=== PATIENT | male | born 1970 | race Caucasian/White ===

== ENCOUNTER 2017-10-28 16:01 | Inpatient (IN) | payer MEDICARE, MEDICAID ==
[~2017-10-28] VITALS: Ht 193 cm; Wt 84.0 kg
[2017-10-28] MEDS ORDERED: ondansetron/PF 4mg/2ml inj IV ONE (17:15)
[2017-10-28] MEDS ORDERED: piperacillin/tazo 3.375gm/50ml 50 ML IV ONE (17:15)
[2017-10-28] MEDS ORDERED: normal saline 1000ML IV soln IV ONE (17:15)
[2017-10-28 17:24] LABS: BASOPHILS % (AUTO) 0 % (0-1); EOSINOPHILS # (AUTO) 0.4 X10'3 (0-0.9); EOSINOPHILS % (AUTO) 1.4 % (0-6); HEMOGLOBIN 16.1 g/dl (14.0-17.9); LYMPHOCYTES # (AUTO) 1.8 X10'3 (1.1-4.8); LYMPHOCYTES % (AUTO) 7.2 % (21-51); MEAN CORPUSCULAR HEMOGLOBIN 31.8 PG (27.0-31.0); MEAN CORPUSCULAR HGB CONC 32.9 % (33.0-36.5); MEAN CORPUSCULAR VOLUME 96.8 FL (78-98); MEAN PLATELET VOLUME 7.8 FL (7.4-10.4); MONOCYTES # (AUTO) 2.1 X10'3 (0-0.9); MONOCYTES % (AUTO) 8.6 % (2-12); NEUTROPHILS # (AUTO) 20.6 X10'3 (1.8-7.7); NEUTROPHILS % (AUTO) 82.8 % (42-75); PLATELET COUNT 305 X10'3 (140-440); RED BLOOD COUNT 5.07 X10'6 (4.70-6.10); RED CELL DISTRIBUTION WIDTH 15.4 % (11.5-14.5); WHITE BLOOD COUNT 24.9 X10'3 (4.5-11.0)
[2017-10-28 17:35] LABS: PARTIAL THROMBOPLASTIN TIME 28 SECONDS (22-32)
[2017-10-28 17:40] LABS: ALANINE AMINOTRANSFERASE 325 U/L (12-78); ALBUMIN 2.9 G/DL (3.4-5.0); ALBUMIN/GLOBULIN RATIO 0.7 (1.1-1.5); ALKALINE PHOSPHATASE 117 IU/L (46-116); ANION GAP 3 (8-16); ASPARTATE AMINO TRANSFERASE 99 U/L (10-37); BLOOD UREA NITROGEN 16 MG/DL (7-18); BUN/CREATININE RATIO 15.2 (5.4-32.0); CALCIUM 9.1 MG/DL (8.5-10.1); CHLORIDE 102 MMOL/L (99-107); CREATININE 1.05 MG/DL (0.60-1.10); GLUCOSE 140 MG/DL (70-104); POTASSIUM 4.5 MMOL/L (3.5-5.1); SODIUM 137 MMOL/L (135-145); TOTAL CARBON DIOXIDE 31.8 MMOL/L (24-32); TOTAL PROTEIN 6.9 G/DL (6.4-8.2); eGFR 76 ML/MIN
[2017-10-28] MEDS ORDERED: iohexol 300mg/ml 100ml inj. ONE (17:59)
[2017-10-28] MEDS ORDERED: vancomycin/NS 1 GM ADD-VANTAGE 250 ML IV ONE (18:00)
[2017-10-28] MEDS ORDERED: cefazolin/dext.iso 2gm/50ml 50 ML IV ONE (18:11)
[2017-10-28] MEDS ORDERED: ceFAZolin inj. 2,000 MG in dextrose 5%-water 100 ML IV ONE (18:34)
[2017-10-28 20:14] LABS: CLARITY,URINE Clear (Clear); COLOR,URINE Yellow (Yellow); GLUCOSE, URINE Negative (Neg); KETONES,URINE Negative (Neg); LEUKOCYTE ESTERASE ,URINE Negative (Neg); NITRITES, URINE Negative (Neg); OCCULT BLOOD,URINE Negative (Neg); PROTEIN,URINE Negative (Neg)
[2017-10-28 20:21] LABS: UA COLLECTION TYPE CLN CATCH MIDSTREAM
[2017-10-28] MEDS ORDERED: LORazepam 2 mg/ml vial IV ONE (23:30)
[2017-10-28] MEDS ORDERED: proCHLORperazine 10 MG/2 ml inj IV ONE (23:30)
[2017-10-29] VITALS (19 sets, daily range): BP systolic 117–167; BP diastolic 64–109
[2017-10-29] MEDS ORDERED: mag hydrox/Alum hydrox/simeth 30ml oral suspension PO PRN (00:10)
[2017-10-29] MEDS ORDERED: magnesium hydroxide 30ml (MOM) UD suspension PO PRN (00:10)
[2017-10-29] MEDS ORDERED: ondansetron/PF 4mg/2ml inj IV PRN ×2 (00:10→12:15)
[2017-10-29] MEDS: normal saline 1000ml 1,000 ML IV SCH ×3 (01:40→20:25)
[2017-10-29] MEDS ORDERED: morphine 5 MG/ML injection IV PRN ×4 (06:06→06:56)
[2017-10-29 06:11] LABS: BASOPHILS # (AUTO) 0.1 X10'3 (0-0.2); BASOPHILS % (AUTO) 0.4 % (0-1); EOSINOPHILS # (AUTO) 0.3 X10'3 (0-0.9); EOSINOPHILS % (AUTO) 1.2 % (0-6); HEMATOCRIT 46.3 % (42.0-52.0); HEMOGLOBIN 15.7 g/dl (14.0-17.9); LYMPHOCYTES % (AUTO) 7.8 % (21-51); MEAN CORPUSCULAR HEMOGLOBIN 32.3 PG (27.0-31.0); MEAN CORPUSCULAR HGB CONC 33.8 % (33.0-36.5); MEAN CORPUSCULAR VOLUME 95.5 FL (78-98); MEAN PLATELET VOLUME 8.2 FL (7.4-10.4); MONOCYTES # (AUTO) 2.9 X10'3 (0-0.9); NEUTROPHILS # (AUTO) 20.9 X10'3 (1.8-7.7); NEUTROPHILS % (AUTO) 79.6 % (42-75); PLATELET COUNT 278 X10'3 (140-440); RED BLOOD COUNT 4.85 X10'6 (4.70-6.10); RED CELL DISTRIBUTION WIDTH 15.3 % (11.5-14.5)
[2017-10-29 06:41] LABS: WHITE BLOOD COUNT 26.2 X10'3 (4.5-11.0)
[2017-10-29 06:47] LABS: ALANINE AMINOTRANSFERASE 233 U/L (12-78); ALBUMIN 2.2 G/DL (3.4-5.0); ALBUMIN/GLOBULIN RATIO 0.7 (1.1-1.5); ALKALINE PHOSPHATASE 119 IU/L (46-116); ANION GAP 7 (8-16); ASPARTATE AMINO TRANSFERASE 73 U/L (10-37); BILIRUBIN,TOTAL 1.3 MG/DL (0.1-1.0); BLOOD UREA NITROGEN 8 MG/DL (7-18); BUN/CREATININE RATIO 10.3 (5.4-32.0); CALCIUM 8.3 MG/DL (8.5-10.1); CHLORIDE 104 MMOL/L (99-107); CREATININE 0.78 MG/DL (0.60-1.10); GLUCOSE 82 MG/DL (70-104); POTASSIUM 3.8 MMOL/L (3.5-5.1); SODIUM 137 MMOL/L (135-145); TOTAL CARBON DIOXIDE 25.9 MMOL/L (24-32); TOTAL PROTEIN 5.5 G/DL (6.4-8.2); eGFR > 90 ML/MIN
[2017-10-29 08:17] LABS: PLATELET ESTIMATE NORMAL; TOTAL CELLS COUNTED 100
[2017-10-29] MEDS ORDERED: NO HOME MEDS (08:53)
[2017-10-29] MEDS: piperacillin/tazo 3.375gm/50ml 50 ML IV SCH ×2 (09:35→16:30)
[2017-10-29] MEDS: vancomycin inj 1,250 MG in normal saline 250ml IV soln 250 ML IV SCH ×2 (09:35→17:13)
[2017-10-29] MEDS ORDERED: BUPIVAcaine/PF 2.5 mg/ml (0.25%) 30ml vial ONE (11:50)
[2017-10-29] MEDS ORDERED: vancomycin 1,000mg inj ONE (11:50)
[2017-10-29] MEDS ORDERED: ringers solution, lacted 1,000 ML IV SCH (12:12)
[2017-10-29] MEDS ORDERED: meperidine/PF 25mg/ml syringe IV PRN ×2 (12:15)
[2017-10-29] MEDS ORDERED: proCHLORperazine 10 MG/2 ml inj IV PRN (12:15)
[2017-10-29] MEDS ORDERED: sevoflurane 250ml liquid IH ONE (12:15)
[2017-10-29] MEDS ORDERED: fentaNYL/PF 50MCG/1 ML 2ML syringe ONE (12:21)
[2017-10-29] MEDS ORDERED: LIDOcaine 1%/PF (10mg/ml) 5ml vial ONE (12:22)
[2017-10-29] MEDS ORDERED: midazolam 2 mg/2 ml injection ONE (12:22)
[2017-10-29] MEDS ORDERED: propofol inj 20 ML IV ONE (12:22)
[2017-10-29 13:43] LABS: BASOPHILS # (AUTO) 0.1 X10'3 (0-0.2); BASOPHILS % (AUTO) 0.3 % (0-1); EOSINOPHILS # (AUTO) 0.4 X10'3 (0-0.9); EOSINOPHILS % (AUTO) 1.4 % (0-6); HEMATOCRIT 45.5 % (42.0-52.0); HEMOGLOBIN 15.1 g/dl (14.0-17.9); LYMPHOCYTES # (AUTO) 2.5 X10'3 (1.1-4.8); LYMPHOCYTES % (AUTO) 8.5 % (21-51); MEAN CORPUSCULAR HEMOGLOBIN 32.2 PG (27.0-31.0); MEAN CORPUSCULAR HGB CONC 33.3 % (33.0-36.5); MEAN CORPUSCULAR VOLUME 96.7 FL (78-98); MEAN PLATELET VOLUME 7.9 FL (7.4-10.4); MONOCYTES # (AUTO) 3.1 X10'3 (0-0.9); MONOCYTES % (AUTO) 10.8 % (2-12); NEUTROPHILS # (AUTO) 22.8 X10'3 (1.8-7.7); PLATELET COUNT 272 X10'3 (140-440); RED BLOOD COUNT 4.71 X10'6 (4.70-6.10); RED CELL DISTRIBUTION WIDTH 15.4 % (11.5-14.5)
[2017-10-29 13:48] LABS: WHITE BLOOD COUNT 28.8 X10'3 (4.5-11.0)
[2017-10-29] MEDS ORDERED: oxyCODONE/APAP 10/325mg tablet PO PRN (14:30)
[2017-10-29 14:45] LABS: PLATELET ESTIMATE NORMAL; SMUDGE CELLS 2+; TOTAL CELLS COUNTED 100
[2017-10-29] MEDS ORDERED: naloxone 0.4 mg/ml inj IV PRN (14:55)
[2017-10-29] MEDS ORDERED: CADD PCA waste documentation MC PRN (14:55)
[2017-10-29] MEDS: HYDROmorphone/NS 1 mg/ml CADD 50 ML IV SCH ×5 (15:23→23:00)
[2017-10-30] VITALS (21 sets, daily range): BP systolic 102–134; BP diastolic 67–88
[2017-10-30] MEDS: piperacillin/tazo 3.375gm/50ml 50 ML IV SCH ×2 (00:24→08:54)
[2017-10-30] MEDS: HYDROmorphone/NS 1 mg/ml CADD 50 ML IV SCH ×12 (01:00→23:00)
[2017-10-30] MEDS: vancomycin inj 1,250 MG in normal saline 250ml IV soln 250 ML IV SCH ×3 (01:30→09:28)
[2017-10-30] MEDS ORDERED: normal saline 1000ml 1,000 ML IVB ONE ×2 (03:06→03:09)
[2017-10-30] MEDS ORDERED: VANCOMYCIN LEVEL IV ONE (07:30)
[2017-10-30] MEDS: LACTOBACILLUS RHAMNOSUS GG 15 billion unit sprinkle caps PO SCH (07:30)
[2017-10-30] MEDS ORDERED: vancomycin inj 1,250 MG in normal saline 250ml IV soln 250 ML IV SCH (08:00)
[2017-10-30] MEDS: normal saline 1000ml 1,000 ML IV SCH ×3 (08:51→21:51)
[2017-10-30 09:01] LABS: BASOPHILS # (AUTO) 0.1 X10'3 (0-0.2); BASOPHILS % (AUTO) 0.4 % (0-1); EOSINOPHILS % (AUTO) 0 % (0-6); HEMATOCRIT 48.6 % (42.0-52.0); LYMPHOCYTES # (AUTO) 2.2 X10'3 (1.1-4.8); LYMPHOCYTES % (AUTO) 7.2 % (21-51); MEAN CORPUSCULAR HEMOGLOBIN 31.8 PG (27.0-31.0); MEAN CORPUSCULAR HGB CONC 32.9 % (33.0-36.5); MEAN CORPUSCULAR VOLUME 96.5 FL (78-98); MEAN PLATELET VOLUME 8.7 FL (7.4-10.4); MONOCYTES # (AUTO) 3.4 X10'3 (0-0.9); MONOCYTES % (AUTO) 10.9 % (2-12); NEUTROPHILS # (AUTO) 25.3 X10'3 (1.8-7.7); NEUTROPHILS % (AUTO) 81.5 % (42-75); PLATELET COUNT 284 X10'3 (140-440); RED BLOOD COUNT 5.04 X10'6 (4.70-6.10); RED CELL DISTRIBUTION WIDTH 15.5 % (11.5-14.5)
[2017-10-30 09:20] LABS: ALBUMIN 1.3 G/DL (3.4-5.0); ANION GAP 16 (8-16); BLOOD UREA NITROGEN 29 MG/DL (7-18); BUN/CREATININE RATIO 10.8 (5.4-32.0); CALCIUM 7.3 MG/DL (8.5-10.1); CHLORIDE 101 MMOL/L (99-107); CREATININE 2.69 MG/DL (0.60-1.10); GLUCOSE 122 MG/DL (70-104); SODIUM 135 MMOL/L (135-145); TOTAL CARBON DIOXIDE 18.1 MMOL/L (24-32); eGFR 26 ML/MIN
[2017-10-30 09:22] LABS: WHITE BLOOD COUNT 31.1 X10'3 (4.5-11.0)
[2017-10-30 09:26] LABS: VANCOMYCIN,TROUGH 30.8 UG/ML (6.0-14.0)
[2017-10-30 09:44] LABS: PLATELET ESTIMATE NORMAL; SMUDGE CELLS 1+; TOTAL CELLS COUNTED 100
[2017-10-30] MEDS ORDERED: propofol inj 20 ML IV ONE (11:46)
[2017-10-30] MEDS ORDERED: sevoflurane 250ml liquid IH ONE (11:47)
[2017-10-30] MEDS ORDERED: fentaNYL/PF 50MCG/1 ML 2ML syringe ONE ×2 (11:49→12:03)
[2017-10-30] MEDS ORDERED: ringers solution, lacted 1,000 ML IV SCH (12:37)
[2017-10-30] MEDS ORDERED: proCHLORperazine 10 MG/2 ml inj IV PRN (12:40)
[2017-10-30] MEDS ORDERED: ondansetron/PF 4mg/2ml inj IV PRN (12:40)
[2017-10-30] MEDS ORDERED: meperidine/PF 25mg/ml syringe IV PRN ×3 (12:40)
[2017-10-30] MEDS: meperidine/PF 25mg/ml syringe IV PRN ×2 (13:20→13:44)
[2017-10-30] MEDS: clindamycin-Cleocin 900mg/D5W 50 ML IV SCH (16:59)
[2017-10-31] VITALS (22 sets, daily range): BP systolic 99–151; BP diastolic 60–92
[2017-10-31] MEDS: HYDROmorphone/NS 1 mg/ml CADD 50 ML IV SCH ×12 (01:00→23:00)
[2017-10-31] MEDS: clindamycin-Cleocin 900mg/D5W 50 ML IV SCH ×3 (02:47→16:39)
[2017-10-31] MEDS: normal saline 1000ml 1,000 ML IV SCH ×2 (03:39→09:56)
[2017-10-31 06:13] LABS: BASOPHILS # (AUTO) 0.1 X10'3 (0-0.2); BASOPHILS % (AUTO) 0.3 % (0-1); EOSINOPHILS % (AUTO) 0 % (0-6); HEMATOCRIT 42.1 % (42.0-52.0); HEMOGLOBIN 14.2 g/dl (14.0-17.9); LYMPHOCYTES # (AUTO) 1.2 X10'3 (1.1-4.8); LYMPHOCYTES % (AUTO) 4.7 % (21-51); MEAN CORPUSCULAR HEMOGLOBIN 32.5 PG (27.0-31.0); MEAN CORPUSCULAR HGB CONC 33.7 % (33.0-36.5); MEAN CORPUSCULAR VOLUME 96.4 FL (78-98); MONOCYTES # (AUTO) 3.8 X10'3 (0-0.9); MONOCYTES % (AUTO) 14.9 % (2-12); NEUTROPHILS # (AUTO) 20.6 X10'3 (1.8-7.7); NEUTROPHILS % (AUTO) 80.1 % (42-75); PLATELET COUNT 354 X10'3 (140-440); RED BLOOD COUNT 4.37 X10'6 (4.70-6.10); RED CELL DISTRIBUTION WIDTH 15.3 % (11.5-14.5)
[2017-10-31 06:30] LABS: WHITE BLOOD COUNT 25.8 X10'3 (4.5-11.0)
[2017-10-31 06:44] LABS: ALBUMIN 1.2 G/DL (3.4-5.0); ANION GAP 16 (8-16); BLOOD UREA NITROGEN 48 MG/DL (7-18); BUN/CREATININE RATIO 12.6 (5.4-32.0); CALCIUM 7.5 MG/DL (8.5-10.1); CHLORIDE 99 MMOL/L (99-107); CREATININE 3.82 MG/DL (0.60-1.10); GLUCOSE 139 MG/DL (70-104); POTASSIUM 5.5 MMOL/L (3.5-5.1); SODIUM 133 MMOL/L (135-145); TOTAL CARBON DIOXIDE 17.9 MMOL/L (24-32); eGFR 17 ML/MIN
[2017-10-31 07:28] LABS: ANISOCYTOSIS 1+; PLATELET ESTIMATE NORMAL; TOTAL CELLS COUNTED 100
[2017-10-31] MEDS ORDERED: VANCOMYCIN LEVEL IV ONE (07:30)
[2017-10-31] MEDS: LACTOBACILLUS RHAMNOSUS GG 15 billion unit sprinkle caps PO SCH (08:15)
[2017-10-31] MEDS: cefepime 2g/NS 100ml ADVANTAGE 100 ML IV SCH (08:16)
[2017-10-31 09:53] LABS: VANCOMYCIN,TROUGH 27.6 UG/ML (6.0-14.0)
[2017-10-31] MEDS ORDERED: metoclopramide 5 mg/ml inj IV PRN (11:45)
[2017-10-31 15:02] LABS: CREATINE KINASE 360 U/L (39-308); PHOSPHORUS 8.9 MG/DL (2.3-4.5)
[2017-10-31] MEDS: sodium bicarbonate (8.4%) inj. 75 MEQ in sodium chloride 0.45% 1,000 ML IV SCH (16:39)
[2017-10-31] MEDS: simethicone 80mg chew tab PO SCH ×2 (16:39→20:59)
[2017-10-31] MEDS: pantoprazole 40 MG vial IV SCH (20:59)
[2017-10-31 21:35] LABS: ALANINE AMINOTRANSFERASE 69 U/L (12-78); ALBUMIN 1.2 G/DL (3.4-5.0); ALBUMIN/GLOBULIN RATIO 0.3 (1.1-1.5); ALKALINE PHOSPHATASE 64 IU/L (46-116); ANION GAP 17 (8-16); ASPARTATE AMINO TRANSFERASE 32 U/L (10-37); BILIRUBIN,TOTAL 0.4 MG/DL (0.1-1.0); BLOOD UREA NITROGEN 59 MG/DL (7-18); BUN/CREATININE RATIO 14.3 (5.4-32.0); CALCIUM 7.5 MG/DL (8.5-10.1); CHLORIDE 97 MMOL/L (99-107); CREATININE 4.13 MG/DL (0.60-1.10); GLUCOSE 127 MG/DL (70-104); POTASSIUM 5.1 MMOL/L (3.5-5.1); SODIUM 132 MMOL/L (135-145); TOTAL CARBON DIOXIDE 17.8 MMOL/L (24-32); TOTAL PROTEIN 4.7 G/DL (6.4-8.2); eGFR 16 ML/MIN
[2017-10-31 23:09] LABS: CREATININE,URINE RANDOM 141.7 MG/DL; SODIUM,URINE RANDOM < 15 MEQ/L
[2017-11-01] VITALS (22 sets, daily range): BP systolic 121–169; BP diastolic 50–110
[2017-11-01] MEDS: HYDROmorphone/NS 1 mg/ml CADD 50 ML IV SCH ×12 (01:00→23:00)
[2017-11-01] MEDS: sodium bicarbonate (8.4%) inj. 75 MEQ in sodium chloride 0.45% 1,000 ML IV SCH ×4 (01:12→17:10)
[2017-11-01] MEDS: clindamycin-Cleocin 900mg/D5W 50 ML IV SCH ×3 (01:15→15:25)
[2017-11-01] MEDS: VANCOMYCIN LEVEL IV SCH (03:00)
[2017-11-01 06:06] LABS: ALKALINE PHOSPHATASE 62 IU/L (46-116); BILIRUBIN,TOTAL 0.4 MG/DL (0.1-1.0); SODIUM 130 MMOL/L (135-145)
[2017-11-01 06:27] LABS: BASOPHILS % (AUTO) 0.2 % (0-1); EOSINOPHILS % (AUTO) 0 % (0-6); HEMATOCRIT 32.5 % (42.0-52.0); HEMOGLOBIN 10.9 g/dl (14.0-17.9); LYMPHOCYTES # (AUTO) 1.4 X10'3 (1.1-4.8); LYMPHOCYTES % (AUTO) 5.7 % (21-51); MEAN CORPUSCULAR HEMOGLOBIN 32.4 PG (27.0-31.0); MEAN CORPUSCULAR HGB CONC 33.6 % (33.0-36.5); MEAN CORPUSCULAR VOLUME 96.2 FL (78-98); MEAN PLATELET VOLUME 8.1 FL (7.4-10.4); MONOCYTES # (AUTO) 4.6 X10'3 (0-0.9); MONOCYTES % (AUTO) 19.4 % (2-12); NEUTROPHILS # (AUTO) 17.7 X10'3 (1.8-7.7); NEUTROPHILS % (AUTO) 74.7 % (42-75); PLATELET COUNT 323 X10'3 (140-440); RED BLOOD COUNT 3.38 X10'6 (4.70-6.10); RED CELL DISTRIBUTION WIDTH 15.2 % (11.5-14.5); WHITE BLOOD COUNT 23.7 X10'3 (4.5-11.0)
[2017-11-01 06:29] LABS: ALANINE AMINOTRANSFERASE 56 U/L (12-78); ALBUMIN 1.1 G/DL (3.4-5.0); ALBUMIN/GLOBULIN RATIO 0.4 (1.1-1.5); ANION GAP 12 (8-16); ASPARTATE AMINO TRANSFERASE 32 U/L (10-37); BLOOD UREA NITROGEN 60 MG/DL (7-18); BUN/CREATININE RATIO 15.2 (5.4-32.0); CALCIUM 7.2 MG/DL (8.5-10.1); CHLORIDE 97 MMOL/L (99-107); CREATININE 3.96 MG/DL (0.60-1.10); GLUCOSE 109 MG/DL (70-104); POTASSIUM 5.3 MMOL/L (3.5-5.1); TOTAL CARBON DIOXIDE 20.9 MMOL/L (24-32); TOTAL PROTEIN 4.2 G/DL (6.4-8.2); eGFR 16 ML/MIN
[2017-11-01 06:30] LABS: CREATINE KINASE 138 U/L (39-308); PHOSPHORUS 6.6 MG/DL (2.3-4.5); VANCOMYCIN,RANDOM 18.9 UG/ML
[2017-11-01] MEDS: LACTOBACILLUS RHAMNOSUS GG 15 billion unit sprinkle caps PO SCH (07:30)
[2017-11-01] MEDS: simethicone 80mg chew tab PO SCH ×3 (07:53→21:23)
[2017-11-01] MEDS ORDERED: vancomycin/NS 1 GM ADD-VANTAGE 250 ML X 1 DOSE IV PRN (08:00)
[2017-11-01] MEDS ORDERED: vancomycin inj 1,250 MG in normal saline 250ml IV soln 250 ML IV PRN ×2 (08:00)
[2017-11-01] MEDS ORDERED: vancomycin inj 500 MG in normal saline 100ml IV soln 100 ML IV PRN (08:00)
[2017-11-01] MEDS: pantoprazole 40 MG vial IV SCH ×2 (08:06→21:23)
[2017-11-01] MEDS: cefepime 2g/NS 100ml ADVANTAGE 100 ML IV SCH (08:06)
[2017-11-01 08:10] LABS: ALANINE AMINOTRANSFERASE 58 U/L (12-78); ALBUMIN 1.1 G/DL (3.4-5.0); ALBUMIN/GLOBULIN RATIO 0.3 (1.1-1.5); ALKALINE PHOSPHATASE 63 IU/L (46-116); ANION GAP 10 (8-16); ASPARTATE AMINO TRANSFERASE 33 U/L (10-37); BILIRUBIN,TOTAL 0.4 MG/DL (0.1-1.0); BLOOD UREA NITROGEN 63 MG/DL (7-18); BUN/CREATININE RATIO 16.4 (5.4-32.0); CALCIUM 7.3 MG/DL (8.5-10.1); CHLORIDE 97 MMOL/L (99-107); CREATININE 3.85 MG/DL (0.60-1.10); GLUCOSE 107 MG/DL (70-104); POTASSIUM 5.6 MMOL/L (3.5-5.1); SODIUM 129 MMOL/L (135-145); TOTAL CARBON DIOXIDE 22.3 MMOL/L (24-32); TOTAL PROTEIN 4.4 G/DL (6.4-8.2); eGFR 17 ML/MIN
[2017-11-01] MEDS ORDERED: ringers solution, lacted 1,000 ML IV SCH (11:12)
[2017-11-01] MEDS ORDERED: proCHLORperazine 10 MG/2 ml inj IV PRN (11:15)
[2017-11-01] MEDS ORDERED: meperidine/PF 25mg/ml syringe IV PRN ×3 (11:15)
[2017-11-01] MEDS ORDERED: ondansetron/PF 4mg/2ml inj IV PRN (11:15)
[2017-11-01] MEDS ORDERED: fentaNYL/PF 50MCG/1 ML 2ML syringe ONE ×2 (11:30→11:46)
[2017-11-01] MEDS ORDERED: midazolam 2 mg/2 ml injection ONE (11:31)
[2017-11-01] MEDS ORDERED: fentaNYL /PF 50mcg/ml 5ml ampule ONE (11:45)
[2017-11-01] MEDS ORDERED: LIDOcaine 2% (20mg/ml) 5ml vial ONE (11:45)
[2017-11-01] MEDS ORDERED: propofol inj 20 ML IV ONE (11:45)
[2017-11-01] MEDS ORDERED: ondansetron/PF 4mg/2ml inj ONE (12:37)
[2017-11-01] MEDS ORDERED: phenylephrine 10mg/ml inj IV ONE (12:37)
[2017-11-01] MEDS: albumin (human) 25% 100 ML IV solution IV SCH (15:24)
[2017-11-01] MEDS ORDERED: sevoflurane 250ml liquid IH ONE (17:30)
[2017-11-01 18:34] LABS: ALANINE AMINOTRANSFERASE 37 U/L (12-78); ALBUMIN 2.2 G/DL (3.4-5.0); ALBUMIN/GLOBULIN RATIO 0.9 (1.1-1.5); ALKALINE PHOSPHATASE 50 IU/L (46-116); ANION GAP 11 (8-16); ASPARTATE AMINO TRANSFERASE 24 U/L (10-37); BILIRUBIN,TOTAL 0.5 MG/DL (0.1-1.0); BLOOD UREA NITROGEN 63 MG/DL (7-18); BUN/CREATININE RATIO 17.7 (5.4-32.0); CALCIUM 7.1 MG/DL (8.5-10.1); CHLORIDE 97 MMOL/L (99-107); CREATININE 3.55 MG/DL (0.60-1.10); GLUCOSE 88 MG/DL (70-104); POTASSIUM 5.1 MMOL/L (3.5-5.1); SODIUM 133 MMOL/L (135-145); TOTAL CARBON DIOXIDE 24.9 MMOL/L (24-32); TOTAL PROTEIN 4.6 G/DL (6.4-8.2); eGFR 19 ML/MIN
[2017-11-02] VITALS (17 sets, daily range): BP systolic 125–169; BP diastolic 53–68
[2017-11-02] MEDS: clindamycin-Cleocin 900mg/D5W 50 ML IV SCH ×4 (00:11→23:37)
[2017-11-02] MEDS: albumin (human) 25% 100 ML IV solution IV SCH ×4 (00:12→23:37)
[2017-11-02] MEDS: HYDROmorphone/NS 1 mg/ml CADD 50 ML IV SCH ×12 (01:00→23:00)
[2017-11-02] MEDS: sodium bicarbonate (8.4%) inj. 75 MEQ in sodium chloride 0.45% 1,000 ML IV SCH ×2 (02:12→08:54)
[2017-11-02] MEDS: VANCOMYCIN LEVEL IV SCH (03:00)
[2017-11-02 05:13] LABS: BASOPHILS % (AUTO) 0.2 % (0-1); EOSINOPHILS # (AUTO) 0.1 X10'3 (0-0.9); EOSINOPHILS % (AUTO) 0.5 % (0-6); HEMATOCRIT 24.1 % (42.0-52.0); LYMPHOCYTES # (AUTO) 1.5 X10'3 (1.1-4.8); LYMPHOCYTES % (AUTO) 12.6 % (21-51); MEAN CORPUSCULAR HEMOGLOBIN 31.9 PG (27.0-31.0); MEAN CORPUSCULAR HGB CONC 33.1 % (33.0-36.5); MEAN CORPUSCULAR VOLUME 96.3 FL (78-98); MEAN PLATELET VOLUME 7.7 FL (7.4-10.4); MONOCYTES # (AUTO) 1.8 X10'3 (0-0.9); MONOCYTES % (AUTO) 15.1 % (2-12); NEUTROPHILS # (AUTO) 8.5 X10'3 (1.8-7.7); NEUTROPHILS % (AUTO) 71.6 % (42-75); PLATELET COUNT 263 X10'3 (140-440); RED BLOOD COUNT 2.51 X10'6 (4.70-6.10); RED CELL DISTRIBUTION WIDTH 15.3 % (11.5-14.5); WHITE BLOOD COUNT 11.9 X10'3 (4.5-11.0)
[2017-11-02 05:57] LABS: ALANINE AMINOTRANSFERASE 20 U/L (12-78); ALBUMIN 2.3 G/DL (3.4-5.0); ALBUMIN/GLOBULIN RATIO 1.1 (1.1-1.5); ALKALINE PHOSPHATASE 43 IU/L (46-116); ANION GAP 7 (8-16); ASPARTATE AMINO TRANSFERASE 21 U/L (10-37); BILIRUBIN,TOTAL 0.6 MG/DL (0.1-1.0); BLOOD UREA NITROGEN 61 MG/DL (7-18); CALCIUM 7.2 MG/DL (8.5-10.1); CHLORIDE 99 MMOL/L (99-107); CREATINE KINASE 127 U/L (39-308); CREATININE 3.05 MG/DL (0.60-1.10); GLUCOSE 85 MG/DL (70-104); PHOSPHORUS 4.4 MG/DL (2.3-4.5); POTASSIUM 4.1 MMOL/L (3.5-5.1); SODIUM 132 MMOL/L (135-145); TOTAL CARBON DIOXIDE 25.6 MMOL/L (24-32); TOTAL PROTEIN 4.4 G/DL (6.4-8.2); VANCOMYCIN,RANDOM 12.1 UG/ML; eGFR 22 ML/MIN
[2017-11-02] MEDS: cefepime 2g/NS 100ml ADVANTAGE 100 ML IV SCH (08:54)
[2017-11-02] MEDS: pantoprazole 40 MG vial IV SCH (09:02)
[2017-11-02] MEDS: LACTOBACILLUS RHAMNOSUS GG 15 billion unit sprinkle caps PO SCH (09:02)
[2017-11-02] MEDS: simethicone 80mg chew tab PO SCH ×4 (09:02→23:37)
[2017-11-02 09:35] LABS: ALANINE AMINOTRANSFERASE 33 U/L (12-78); ALBUMIN/GLOBULIN RATIO 0.9 (1.1-1.5); ALKALINE PHOSPHATASE 65 IU/L (46-116); ANION GAP 8 (8-16); ASPARTATE AMINO TRANSFERASE 25 U/L (10-37); BILIRUBIN,TOTAL 0.6 MG/DL (0.1-1.0); BLOOD UREA NITROGEN 57 MG/DL (7-18); BUN/CREATININE RATIO 19.3 (5.4-32.0); CHLORIDE 100 MMOL/L (99-107); CREATININE 2.96 MG/DL (0.60-1.10); GLUCOSE 119 MG/DL (70-104); POTASSIUM 3.8 MMOL/L (3.5-5.1); SODIUM 134 MMOL/L (135-145); TOTAL CARBON DIOXIDE 25.6 MMOL/L (24-32); TOTAL PROTEIN 4.2 G/DL (6.4-8.2); eGFR 23 ML/MIN
[2017-11-02] MEDS: pantoprazole 40mg Tablet.DR PO SCH (21:36)
[2017-11-03] VITALS (8 sets, daily range): BP systolic 124–167; BP diastolic 63–79
[2017-11-03] MEDS: HYDROmorphone/NS 1 mg/ml CADD 50 ML IV SCH ×12 (01:00→23:00)
[2017-11-03] MEDS: VANCOMYCIN LEVEL IV SCH (03:00)
[2017-11-03 04:42] LABS: BASOPHILS % (AUTO) 0.2 % (0-1); EOSINOPHILS # (AUTO) 0.2 X10'3 (0-0.9); HEMATOCRIT 22.1 % (42.0-52.0); HEMOGLOBIN 7.5 g/dl (14.0-17.9); LYMPHOCYTES # (AUTO) 1.1 X10'3 (1.1-4.8); LYMPHOCYTES % (AUTO) 9.3 % (21-51); MEAN CORPUSCULAR HEMOGLOBIN 32.4 PG (27.0-31.0); MEAN CORPUSCULAR VOLUME 95.2 FL (78-98); MEAN PLATELET VOLUME 7.3 FL (7.4-10.4); MONOCYTES # (AUTO) 1.9 X10'3 (0-0.9); MONOCYTES % (AUTO) 16.2 % (2-12); NEUTROPHILS # (AUTO) 8.7 X10'3 (1.8-7.7); NEUTROPHILS % (AUTO) 72.3 % (42-75); PLATELET COUNT 307 X10'3 (140-440); RED BLOOD COUNT 2.33 X10'6 (4.70-6.10); RED CELL DISTRIBUTION WIDTH 15.9 % (11.5-14.5)
[2017-11-03 05:00] LABS: ALANINE AMINOTRANSFERASE 25 U/L (12-78); ALBUMIN 2.9 G/DL (3.4-5.0); ALBUMIN/GLOBULIN RATIO 1.5 (1.1-1.5); ALKALINE PHOSPHATASE 57 IU/L (46-116); ANION GAP 10 (8-16); ASPARTATE AMINO TRANSFERASE 23 U/L (10-37); BILIRUBIN,TOTAL 0.7 MG/DL (0.1-1.0); BLOOD UREA NITROGEN 54 MG/DL (7-18); BUN/CREATININE RATIO 21.6 (5.4-32.0); CHLORIDE 100 MMOL/L (99-107); CREATINE KINASE 65 U/L (39-308); GLUCOSE 103 MG/DL (70-104); PHOSPHORUS 4.2 MG/DL (2.3-4.5); POTASSIUM 4.1 MMOL/L (3.5-5.1); SODIUM 137 MMOL/L (135-145); TOTAL CARBON DIOXIDE 26.6 MMOL/L (24-32); TOTAL PROTEIN 4.9 G/DL (6.4-8.2); VANCOMYCIN,RANDOM 7.1 UG/ML; eGFR 28 ML/MIN
[2017-11-03 05:13] LABS: TOTAL CELLS COUNTED 100
[2017-11-03 05:14] LABS: ANISOCYTOSIS 1+; PLATELET ESTIMATE NORMAL
[2017-11-03 05:15] LABS: POLYCHROMASIA 1+; ROULEAUX 1+; TOXIC GRANULATION 1+
[2017-11-03] MEDS: albumin (human) 25% 100 ML IV solution IV SCH (08:05)
[2017-11-03] MEDS: clindamycin-Cleocin 900mg/D5W 50 ML IV SCH ×2 (08:05→16:30)
[2017-11-03] MEDS: LACTOBACILLUS RHAMNOSUS GG 15 billion unit sprinkle caps PO SCH (08:10)
[2017-11-03] MEDS: pantoprazole 40mg Tablet.DR PO SCH ×2 (08:10→20:11)
[2017-11-03] MEDS: simethicone 80mg chew tab PO SCH ×2 (08:11→20:11)
[2017-11-03] MEDS: cefepime 2g/NS 100ml ADVANTAGE 100 ML IV SCH ×2 (08:53→20:11)
[2017-11-03] MEDS ORDERED: hydrALAZINE 20mg/ml inj. IV PRN (10:20)
[2017-11-03 13:36] LABS: HIV ANTIBODY 1&2 RAPID NON-REACTIVE (Neg)
[2017-11-04] VITALS (21 sets, daily range): BP systolic 118–189; BP diastolic 64–115
[2017-11-04] MEDS: clindamycin-Cleocin 900mg/D5W 50 ML IV SCH ×3 (00:21→16:00)
[2017-11-04] MEDS: HYDROmorphone/NS 1 mg/ml CADD 50 ML IV SCH ×12 (01:00→23:00)
[2017-11-04 05:02] LABS: BASOPHILS % (AUTO) 0.1 % (0-1); EOSINOPHILS # (AUTO) 0.6 X10'3 (0-0.9); EOSINOPHILS % (AUTO) 3.2 % (0-6); HEMATOCRIT 27.7 % (42.0-52.0); HEMOGLOBIN 9.4 g/dl (14.0-17.9); LYMPHOCYTES # (AUTO) 1.3 X10'3 (1.1-4.8); LYMPHOCYTES % (AUTO) 7.4 % (21-51); MEAN CORPUSCULAR HGB CONC 33.9 % (33.0-36.5); MEAN CORPUSCULAR VOLUME 94.4 FL (78-98); MEAN PLATELET VOLUME 6.8 FL (7.4-10.4); MONOCYTES # (AUTO) 2.6 X10'3 (0-0.9); MONOCYTES % (AUTO) 14.7 % (2-12); NEUTROPHILS # (AUTO) 13.2 X10'3 (1.8-7.7); NEUTROPHILS % (AUTO) 74.6 % (42-75); PLATELET COUNT 385 X10'3 (140-440); RED BLOOD COUNT 2.93 X10'6 (4.70-6.10); WHITE BLOOD COUNT 17.7 X10'3 (4.5-11.0)
[2017-11-04 05:12] LABS: ALANINE AMINOTRANSFERASE 37 U/L (12-78); ALBUMIN 2.7 G/DL (3.4-5.0); ALBUMIN/GLOBULIN RATIO 1.1 (1.1-1.5); ALKALINE PHOSPHATASE 96 IU/L (46-116); ANION GAP 6 (8-16); ASPARTATE AMINO TRANSFERASE 35 U/L (10-37); BILIRUBIN,TOTAL 0.6 MG/DL (0.1-1.0); BLOOD UREA NITROGEN 49 MG/DL (7-18); BUN/CREATININE RATIO 25.9 (5.4-32.0); CALCIUM 8.1 MG/DL (8.5-10.1); CHLORIDE 101 MMOL/L (99-107); CREATINE KINASE 30 U/L (39-308); CREATININE 1.89 MG/DL (0.60-1.10); GLUCOSE 117 MG/DL (70-104); PHOSPHORUS 3.3 MG/DL (2.3-4.5); POTASSIUM 4.5 MMOL/L (3.5-5.1); SODIUM 135 MMOL/L (135-145); TOTAL CARBON DIOXIDE 27.9 MMOL/L (24-32); TOTAL PROTEIN 5.1 G/DL (6.4-8.2); eGFR 38 ML/MIN
[2017-11-04] MEDS: LACTOBACILLUS RHAMNOSUS GG 15 billion unit sprinkle caps PO SCH (07:30)
[2017-11-04] MEDS: pantoprazole 40mg Tablet.DR PO SCH ×2 (08:00→20:03)
[2017-11-04] MEDS: simethicone 80mg chew tab PO SCH ×3 (08:00→20:03)
[2017-11-04] MEDS: cefepime 2g/NS 100ml ADVANTAGE 100 ML IV SCH ×2 (08:37→20:03)
[2017-11-04] MEDS ORDERED: ringers solution, lacted 1,000 ML IV SCH (09:54)
[2017-11-04] MEDS ORDERED: ondansetron/PF 4mg/2ml inj IV PRN (09:55)
[2017-11-04] MEDS ORDERED: meperidine/PF 25mg/ml syringe IV ONE (09:55)
[2017-11-04] MEDS ORDERED: meperidine/PF 25mg/ml syringe IV PRN ×2 (09:55)
[2017-11-04] MEDS ORDERED: proCHLORperazine 10 MG/2 ml inj IV PRN (09:55)
[2017-11-04] MEDS ORDERED: desflurane 240ml liquid inh. IH ONE (10:18)
[2017-11-04] MEDS ORDERED: fentaNYL/PF 50MCG/1 ML 2ML syringe ONE (10:24)
[2017-11-04] MEDS ORDERED: midazolam 2 mg/2 ml injection ONE (10:25)
[2017-11-04 11:13] LABS: HBSAG SCREEN Negative (Negative); HEP A AB, IGM Negative (Negative); HEP B CORE AB, IGM Negative (Negative); HEPATITIS C ANTIBODY >11.0 s/co ratio (0.0-0.9)
[2017-11-04] MEDS ORDERED: LIDOcaine 2% (20mg/ml) 5ml vial ONE (11:52)
[2017-11-04] MEDS ORDERED: propofol inj 20 ML IV ONE (11:52)
[2017-11-04] MEDS ORDERED: labetalol 5mg/ml 20ml inj. IV PRN (13:20)
[2017-11-05] MEDS: clindamycin-Cleocin 900mg/D5W 50 ML IV SCH ×3 (00:33→16:43)
[2017-11-05] MEDS: HYDROmorphone/NS 1 mg/ml CADD 50 ML IV SCH ×12 (01:00→23:00)
[2017-11-05 02:00] VITALS: BP 120/76
[2017-11-05 05:27] LABS: ALANINE AMINOTRANSFERASE 57 U/L (12-78); ALBUMIN 2.3 G/DL (3.4-5.0); ALBUMIN/GLOBULIN RATIO 0.9 (1.1-1.5); ALKALINE PHOSPHATASE 98 IU/L (46-116); ANION GAP 5 (8-16); ASPARTATE AMINO TRANSFERASE 50 U/L (10-37); BILIRUBIN,TOTAL 0.6 MG/DL (0.1-1.0); BLOOD UREA NITROGEN 42 MG/DL (7-18); BUN/CREATININE RATIO 25.3 (5.4-32.0); CALCIUM 7.8 MG/DL (8.5-10.1); CHLORIDE 99 MMOL/L (99-107); CREATINE KINASE 64 U/L (39-308); CREATININE 1.66 MG/DL (0.60-1.10); GLUCOSE 117 MG/DL (70-104); PHOSPHORUS 3.4 MG/DL (2.3-4.5); POTASSIUM 4.4 MMOL/L (3.5-5.1); SODIUM 133 MMOL/L (135-145); TOTAL CARBON DIOXIDE 28.8 MMOL/L (24-32); TOTAL PROTEIN 4.8 G/DL (6.4-8.2); eGFR 45 ML/MIN
[2017-11-05 06:00] VITALS: BP 126/81
[2017-11-05] MEDS: LACTOBACILLUS RHAMNOSUS GG 15 billion unit sprinkle caps PO SCH (08:21)
[2017-11-05] MEDS: simethicone 80mg chew tab PO SCH ×3 (08:22→20:52)
[2017-11-05] MEDS: pantoprazole 40mg Tablet.DR PO SCH ×2 (08:22→20:52)
[2017-11-05] MEDS: cefepime 2g/NS 100ml ADVANTAGE 100 ML IV SCH ×2 (09:44→20:52)
[2017-11-05 11:00] VITALS: BP 150/86
[2017-11-05 19:00] VITALS: BP 148/90
[2017-11-05] MEDS: oxyCODONE/APAP 10/325mg tablet PO PRN (21:10)
[2017-11-05 23:00] VITALS: BP 125/75
[2017-11-06] MEDS: clindamycin-Cleocin 900mg/D5W 50 ML IV SCH ×3 (00:18→16:30)
[2017-11-06] MEDS: HYDROmorphone/NS 1 mg/ml CADD 50 ML IV SCH ×9 (00:49→17:00)
[2017-11-06 03:00] VITALS: BP 150/90
[2017-11-06 05:11] LABS: ALANINE AMINOTRANSFERASE 65 U/L (12-78); ALBUMIN 2.2 G/DL (3.4-5.0); ALBUMIN/GLOBULIN RATIO 0.8 (1.1-1.5); ALKALINE PHOSPHATASE 117 IU/L (46-116); ANION GAP 5 (8-16); ASPARTATE AMINO TRANSFERASE 52 U/L (10-37); BILIRUBIN,TOTAL 0.7 MG/DL (0.1-1.0); BLOOD UREA NITROGEN 35 MG/DL (7-18); BUN/CREATININE RATIO 24.8 (5.4-32.0); CALCIUM 8.1 MG/DL (8.5-10.1); CHLORIDE 101 MMOL/L (99-107); CREATINE KINASE 23 U/L (39-308); CREATININE 1.41 MG/DL (0.60-1.10); GLUCOSE 99 MG/DL (70-104); PHOSPHORUS 3.4 MG/DL (2.3-4.5); POTASSIUM 4.9 MMOL/L (3.5-5.1); SODIUM 134 MMOL/L (135-145); TOTAL CARBON DIOXIDE 28.2 MMOL/L (24-32); TOTAL PROTEIN 5.1 G/DL (6.4-8.2); eGFR 54 ML/MIN
[2017-11-06 06:00] VITALS: BP 144/85
[2017-11-06] MEDS: cefepime 2g/NS 100ml ADVANTAGE 100 ML IV SCH (08:14)
[2017-11-06] MEDS: pantoprazole 40mg Tablet.DR PO SCH (08:14)
[2017-11-06] MEDS: simethicone 80mg chew tab PO SCH ×2 (08:14→12:34)
[2017-11-06] MEDS: LACTOBACILLUS RHAMNOSUS GG 15 billion unit sprinkle caps PO SCH (08:14)
[2017-11-06 11:00] VITALS: BP 146/86
[2017-11-06 15:00] VITALS: BP 146/86
[2017-11-06] MEDS: oxyCODONE/APAP 10/325mg tablet PO PRN (18:36)
[2017-11-06 19:00] VITALS: BP 130/78
== END 2017-11-06 19:30 | DRG 853 ==
LOC: ER 16:02 → EDBD 16:02 → ED HOLD 10-29 00:09 → SUR 3N 10-29 01:25 → CICU 2S 10-30 13:34 → PCU 3S 11-02 17:30
PROVIDERS: ADMIT Internal Medicine; ATTEND Family Medicine
PROC: BP2T1ZZ Computerized Tomography (CT Scan) of Right Upper Extremity using Low Osmolar Contrast (ICD-10-PCS; 2017-10-28)
PROC: 0KBH0ZZ Excision of Right Thorax Muscle, Open Approach (ICD-10-PCS; 2017-10-29)
PROC: 0KB70ZZ Excision of Right Upper Arm Muscle, Open Approach (ICD-10-PCS; 2017-10-29)
PROC: 0KB90ZZ Excision of Right Lower Arm and Wrist Muscle, Open Approach (ICD-10-PCS; principal; 2017-10-29 12:15)
PROC: 0KB90ZZ Excision of Right Lower Arm and Wrist Muscle, Open Approach (ICD-10-PCS; 2017-10-30)
PROC: 0KBH0ZZ Excision of Right Thorax Muscle, Open Approach (ICD-10-PCS; 2017-10-30)
PROC: 0KB70ZZ Excision of Right Upper Arm Muscle, Open Approach (ICD-10-PCS; 2017-10-30)
PROC: 0KB70ZZ Excision of Right Upper Arm Muscle, Open Approach (ICD-10-PCS; 2017-11-01)
PROC: 0KBH0ZZ Excision of Right Thorax Muscle, Open Approach (ICD-10-PCS; 2017-11-01)
PROC: 0KB90ZZ Excision of Right Lower Arm and Wrist Muscle, Open Approach (ICD-10-PCS; 2017-11-01)
PROC: 02HV33Z Insertion of Infusion Device into Superior Vena Cava, Percutaneous Approach (ICD-10-PCS; 2017-11-02)
PROC: B548ZZA Ultrasonography of Superior Vena Cava, Guidance (ICD-10-PCS; 2017-11-02)
PROC: 30233N1 Transfusion of Nonautologous Red Blood Cells into Peripheral Vein, Percutaneous Approach (ICD-10-PCS; 2017-11-03)
PROC: 0KB70ZZ Excision of Right Upper Arm Muscle, Open Approach (ICD-10-PCS; 2017-11-04)
PROC: 0KBH0ZZ Excision of Right Thorax Muscle, Open Approach (ICD-10-PCS; 2017-11-04)
PROC: 0KB90ZZ Excision of Right Lower Arm and Wrist Muscle, Open Approach (ICD-10-PCS; 2017-11-04)
DX: A41.9 Sepsis, unspecified organism (principal); M72.6 Necrotizing fasciitis; L03.113 Cellulitis of right upper limb; N17.9 Acute kidney failure, unspecified; D62 Acute posthemorrhagic anemia; B19.20 Unspecified viral hepatitis C without hepatic coma; F15.10 Other stimulant abuse, uncomplicated; F41.9 Anxiety disorder, unspecified; I10 Essential (primary) hypertension; I88.9 Nonspecific lymphadenitis, unspecified; F19.10 Other psychoactive substance abuse, uncomplicated; F17.200 Nicotine dependence, unspecified, uncomplicated; Z79.899 Other long term (current) drug therapy; Z86.19 Personal history of other infectious and parasitic diseases
CPT/HCPCS: 36415; 36569; 71045; 71250; 73060; 73090; 73130; 73200; 73201; 76937; 80048; 80053; 80074; 80202; 81003; 82550; 82570; 83605; 84100; 84145; 84156; 84300; 84484; 84540; 85025; 85610; 85730; 86703; 86885; 86900; 86901; 86920; 87040; 87070; 87075; 93005; 96365; 96366; 96367; 96368; 96375; 96376; 99285; A4344; A4371; A4414; A4649; A6222; A6250; A6253; A6255; A6258; A6446; A6449; A7000; C9113; J0360; J0690; J0692; J0780; J1170; J2001; J2060; J2175; J2250; J2270; J2370; J2405; J2543; J2704; J3010; J3370; J3490; J7030; J7060; J7120; P9016; P9047; Q9967

== ENCOUNTER 2019-03-28 09:45 | Emergency (ER) | payer MEDICARE, MEDICAID ==
[~2019-03-28] VITALS: Ht 193 cm; Wt 92.0 kg
[~2019-03-28 09:45] MED LIST: NO HOME MEDS
[2019-03-28 09:55] VITALS: BP 157/106
[2019-03-28] MEDS ORDERED: LIDOcaine 1% w/epiNEPHrine 1:200,000 30ml vial IM ONE (10:00)
[2019-03-28] MEDS ORDERED: TRAM50TA2 PO (10:46)
== END 2019-03-28 11:03 | disposition home or self-care (01) ==
LOC: ER 09:46
DX: S61.211A Laceration without foreign body of left index finger without damage to nail, initial encounter (principal); F12.10 Cannabis abuse, uncomplicated; Z86.19 Personal history of other infectious and parasitic diseases; W26.0XXA Contact with knife, initial encounter; Y93.89 Activity, other specified; Y92.89 Other specified places as the place of occurrence of the external cause; Y99.8 Other external cause status
CPT/HCPCS: 12001; 99283; J3490

== ENCOUNTER 2019-07-20 11:15 | Emergency (ER) | payer MEDICARE, MEDICAID ==
[~2019-07-20] VITALS: Ht 193 cm; Wt 92.9 kg
[2019-07-20] MEDS ORDERED: AMOX500C2 PO (13:55)
--- NOTE | 2019-07-20 14:39 | NUR ---
ASSISTING RN WITH DC HOME, PT HAS HEART RATE OF 140S, DR DONOVAN IS AWARE, PT DENIES CHEST PAIN, PT IS A VERY ACTIVE LLII, TALKING FAST, SLIGHTLY ANXIOUS "THIS IS JUST ME..."
[2019-07-20 14:47] VITALS: BP 156/100
== END 2019-07-20 14:48 | disposition home or self-care (01) ==
LOC: ER 11:15
DX: K08.89 Other specified disorders of teeth and supporting structures (principal); I25.2 Old myocardial infarction; F12.90 Cannabis use, unspecified, uncomplicated; Z79.2 Long term (current) use of antibiotics
CPT/HCPCS: 99283

== ENCOUNTER 2020-12-11 02:19 | Emergency (ER) | payer MEDICARE, MEDICAID ==
[~2020-12-11] VITALS: Ht 193 cm; Wt 95.0 kg
[2020-12-11 02:21] VITALS: BP 150/107
[2020-12-11] MEDS ORDERED: BUPIVAcaine/PF 2.5 mg/ml (0.25%) 30ml vial IJ ONE (02:35)
[2020-12-11] MEDS ORDERED: BUPIVAcaine/PF 2.5mg/ml (0.25%) 10ml vial IJ ONE (02:40)
== END 2020-12-11 03:34 | disposition home or self-care (01) ==
LOC: ER 02:19
DX: S63.287A Dislocation of proximal interphalangeal joint of left little finger, initial encounter (principal); M79.645 Pain in left finger(s); I25.2 Old myocardial infarction; F17.200 Nicotine dependence, unspecified, uncomplicated; F12.90 Cannabis use, unspecified, uncomplicated; F15.90 Other stimulant use, unspecified, uncomplicated; Z86.19 Personal history of other infectious and parasitic diseases; Z72.89 Other problems related to lifestyle; X58.XXXA Exposure to other specified factors, initial encounter; Y93.89 Activity, other specified; Y92.89 Other specified places as the place of occurrence of the external cause; Y99.8 Other external cause status
CPT/HCPCS: 26770; 73130; 99284

== ENCOUNTER 2021-01-25 16:31 | Emergency (ER) | payer MEDICARE, MEDICAID ==
[~2021-01-25] VITALS: Ht 193 cm; Wt 87.0 kg
[2021-01-25 17:18] VITALS: BP 148/100
== END 2021-01-25 19:02 | disposition left against medical advice (07) ==
LOC: ER 16:31
DX: L02.416 Cutaneous abscess of left lower limb (principal); Z53.21 Procedure and treatment not carried out due to patient leaving prior to being seen by health care provider

== ENCOUNTER 2021-01-27 16:42 | Emergency (ER) | payer MEDICARE, MEDICAID ==
[~2021-01-27] VITALS: Ht 193 cm; Wt 91.0 kg
[2021-01-27 16:46] VITALS: BP 183/105
[2021-01-27] MEDS ORDERED: acetaminophen 325mg tablet PO ONE (17:40)
--- NOTE | 2021-01-27 18:00 | NUR ---
encouraged pt to let lab draw his blood and then his results will be discussed.
[2021-01-27 18:31] LABS: BASOPHILS # (AUTO) 0.1 X10'3 (0-0.2); EOSINOPHILS # (AUTO) 0.2 X10'3 (0-0.9); MEAN PLATELET VOLUME 8.1 FL (7.4-10.4)
[2021-01-27 18:32] LABS: ALANINE AMINOTRANSFERASE 271 U/L (12-78); ALBUMIN 3.5 G/DL (3.4-5.0); ALBUMIN/GLOBULIN RATIO 0.8 (1.1-1.5); ALKALINE PHOSPHATASE 77 IU/L (46-116); ANION GAP 11 (8-16); ASPARTATE AMINO TRANSFERASE 167 U/L (10-37); BILIRUBIN,TOTAL 0.6 MG/DL (0.1-1.0); BLOOD UREA NITROGEN 16 MG/DL (7-18); BUN/CREATININE RATIO 18.6 (5.4-32.0); CHLORIDE 102 MMOL/L (99-107); CREATININE 0.86 MG/DL (0.60-1.10); GLUCOSE 91 MG/DL (70-104); POTASSIUM 3.8 MMOL/L (3.5-5.1); SODIUM 142 MMOL/L (135-145); TOTAL CARBON DIOXIDE 29.4 MMOL/L (24-32); TOTAL PROTEIN 7.7 G/DL (6.4-8.2); eGFR > 90 ML/MIN
[2021-01-27 18:33] LABS: BASOPHILS % (AUTO) 1.1 % (0-1); EOSINOPHILS % (AUTO) 2.1 % (0-6); HEMATOCRIT 41.8 % (42.0-52.0); HEMOGLOBIN 14.1 g/dl (14.0-17.9); LYMPHOCYTES % (AUTO) 17.6 % (21-51); MEAN CORPUSCULAR HEMOGLOBIN 32.9 PG (27.0-31.0); MEAN CORPUSCULAR HGB CONC 33.7 g/dL (33.0-36.5); MEAN CORPUSCULAR VOLUME 97.9 FL (78-98); MONOCYTES # (AUTO) 1.9 X10'3 (0-0.9); MONOCYTES % (AUTO) 16.5 % (2-12); NEUTROPHILS % (AUTO) 62.7 % (42-75); PLATELET COUNT 271 X10'3 (140-440); RED BLOOD COUNT 4.27 X10'6 (4.70-6.10); RED CELL DISTRIBUTION WIDTH 13.8 % (11.5-14.5); WHITE BLOOD COUNT 11.3 X10'3 (4.5-11.0)
== END 2021-01-27 19:55 | disposition home or self-care (01) ==
LOC: ER 16:44
DX: S90.02XA Contusion of left ankle, initial encounter (principal); S90.32XA Contusion of left foot, initial encounter; S80.12XA Contusion of left lower leg, initial encounter; R51.9 Headache, unspecified; R11.2 Nausea with vomiting, unspecified; I25.2 Old myocardial infarction; F12.90 Cannabis use, unspecified, uncomplicated; F15.90 Other stimulant use, unspecified, uncomplicated; Z86.19 Personal history of other infectious and parasitic diseases; Z72.89 Other problems related to lifestyle; W18.39XA Other fall on same level, initial encounter; Y93.89 Activity, other specified; Y92.89 Other specified places as the place of occurrence of the external cause; Y99.8 Other external cause status
CPT/HCPCS: 70450; 73610; 80053; 85025; 99285

== ENCOUNTER 2021-03-02 14:29 | Emergency (ER) | payer MEDICARE, MEDICAID ==
[~2021-03-02] VITALS: Ht 193 cm; Wt 89.8 kg
[2021-03-02 15:44] VITALS: BP 155/100
[2021-03-02] MEDS ORDERED: SULF1TAB49 PO (16:29)
[2021-03-02] MEDS ORDERED: MUPI22OI30 TOP (16:29)
== END 2021-03-02 16:34 | disposition home or self-care (01) ==
LOC: ER 14:29
DX: S81.802A Unspecified open wound, left lower leg, initial encounter (principal); S81.801A Unspecified open wound, right lower leg, initial encounter; S71.102A Unspecified open wound, left thigh, initial encounter; L02.416 Cutaneous abscess of left lower limb; L02.415 Cutaneous abscess of right lower limb; I25.2 Old myocardial infarction; F12.90 Cannabis use, unspecified, uncomplicated; F15.90 Other stimulant use, unspecified, uncomplicated; Z86.19 Personal history of other infectious and parasitic diseases; X58.XXXA Exposure to other specified factors, initial encounter; Y93.89 Activity, other specified; Y92.89 Other specified places as the place of occurrence of the external cause; Y99.8 Other external cause status
CPT/HCPCS: 99283

== ENCOUNTER → 2021-03-05 | Emergency (ER) | payer MEDICARE, MEDICAID ==
[~2021-03-05] MED LIST changes: +MUPI22OI30 TOP; +SULF1TAB49 PO
== END | disposition left against medical advice (07) ==
LOC: ER 18:48
DX: Z53.21 Procedure and treatment not carried out due to patient leaving prior to being seen by health care provider (principal)

== ENCOUNTER 2021-03-06 16:02 | Emergency (ER) | payer MEDICARE, MEDICAID ==
[~2021-03-06] VITALS: Ht 193 cm; Wt 91.0 kg
[2021-03-06] MEDS ORDERED: SULF1TAB49 PO (16:32)
[2021-03-06] MEDS ORDERED: MUPI22OI30 TOP (16:32)
== END 2021-03-06 16:48 | disposition home or self-care (01) ==
LOC: ER 16:02
DX: L03.116 Cellulitis of left lower limb (principal); L03.115 Cellulitis of right lower limb; L03.114 Cellulitis of left upper limb; L03.113 Cellulitis of right upper limb; F15.10 Other stimulant abuse, uncomplicated; I25.2 Old myocardial infarction; F17.200 Nicotine dependence, unspecified, uncomplicated; F12.90 Cannabis use, unspecified, uncomplicated; Z72.89 Other problems related to lifestyle; Z86.19 Personal history of other infectious and parasitic diseases; Z79.899 Other long term (current) drug therapy
CPT/HCPCS: 99281; 99283

== ENCOUNTER 2021-07-16 12:48 | Emergency (ER) | payer MEDICARE, MEDICAID ==
[~2021-07-16] VITALS: Ht 193 cm; Wt 85.8 kg
[2021-07-16 12:51] VITALS: BP 111/80
== END 2021-07-16 17:42 | disposition left against medical advice (07) ==
LOC: ER 12:48
DX: M25.561 Pain in right knee (principal); Z53.21 Procedure and treatment not carried out due to patient leaving prior to being seen by health care provider

== ENCOUNTER 2022-02-25 11:17 | Emergency (ER) | payer MEDICARE, MEDICAID ==
[~2022-02-25] VITALS: Ht 193 cm; Wt 90.9 kg
[2022-02-25 11:44] VITALS: BP 164/100
[2022-02-25] MEDS ORDERED: SULF1TAB49 PO ×3 (13:15→13:23)
[2022-02-25] MEDS ORDERED: sulfamethoxazole/trimethoprim DS (800/160mg) tablet PO ONE (13:20)
== END 2022-02-25 13:35 | disposition home or self-care (01) ==
LOC: ER 11:18
DX: L02.211 Cutaneous abscess of abdominal wall (principal); F22 Delusional disorders; R45.1 Restlessness and agitation; I25.2 Old myocardial infarction; F12.90 Cannabis use, unspecified, uncomplicated; F15.90 Other stimulant use, unspecified, uncomplicated; Z86.19 Personal history of other infectious and parasitic diseases; Z72.89 Other problems related to lifestyle; Z79.2 Long term (current) use of antibiotics; Z79.899 Other long term (current) drug therapy
CPT/HCPCS: 99283

== ENCOUNTER 2022-07-19 05:42 | Emergency (ER) | payer MEDICARE, MEDICAID | END 2022-07-19 06:01 | disposition left against medical advice (07) | LOC: ER 05:43 | DX: H92.09 Otalgia, unspecified ear (principal); Z53.21 Procedure and treatment not carried out due to patient leaving prior to being seen by health care provider ==

== ENCOUNTER 2022-07-19 07:16 | Emergency (ER) | payer MEDICARE, MEDICAID ==
[~2022-07-19] VITALS: Ht 193 cm; Wt 100.0 kg
[2022-07-19 07:17] VITALS: BP 151/99
--- NOTE | 2022-07-19 07:21 | NUR ---
SOON PT WAS FINISHED WITH TRIAGE HE ASKED IF HE HAD A TEMP, WHEN TOLD NO HE JUMPED UP AND STATED "I'M OUT OF HERE THEN" AND AMBULATED OUT OF THE ER LOBBY
== END 2022-07-19 07:24 | disposition left against medical advice (07) ==
LOC: ER 07:16
DX: H92.09 Otalgia, unspecified ear (principal); Z53.21 Procedure and treatment not carried out due to patient leaving prior to being seen by health care provider

== ENCOUNTER 2022-10-19 04:08 | Emergency (ER) | payer MEDICARE, MEDICAID ==
[~2022-10-19] VITALS: Ht 188 cm; Wt 81.8 kg
[2022-10-19 04:22] VITALS: BP 151/82
== END 2022-10-19 04:56 | disposition left against medical advice (07) ==
LOC: ER 04:09
DX: F29 Unspecified psychosis not due to a substance or known physiological condition (principal); Z53.21 Procedure and treatment not carried out due to patient leaving prior to being seen by health care provider

== ENCOUNTER 2024-01-21 22:35 | Emergency (ER) | payer MEDICARE, MEDICAID ==
[~2024-01-21] VITALS: Ht 188 cm; Wt 90.9 kg
[2024-01-21 23:07] VITALS: BP 156/99; PULSE 99; RESP 16; TEMP 98.4; O2SAT 98
== END 2024-01-22 02:00 | disposition left against medical advice (07) ==
LOC: ER 22:36
DX: R10.9 Unspecified abdominal pain (principal); M79.606 Pain in leg, unspecified; Z53.21 Procedure and treatment not carried out due to patient leaving prior to being seen by health care provider
CPT/HCPCS: 99281

== ENCOUNTER 2024-02-28 09:44 | Emergency (ER) | payer MEDICARE, MEDICAID ==
[~2024-02-28] VITALS: Ht 193 cm; Wt 94.5 kg
[2024-02-28 09:54] VITALS: BP 183/121; PULSE 88; RESP 16; TEMP 98.6; O2SAT 100
[2024-02-28] MEDS ORDERED: SULF1TAB49 PO (10:20)
[2024-02-28] MEDS ORDERED: CEPH-585 PO (10:20)
== END 2024-02-28 10:32 | disposition home or self-care (01) ==
LOC: ER 09:44
DX: L03.116 Cellulitis of left lower limb (principal); I25.2 Old myocardial infarction; F15.90 Other stimulant use, unspecified, uncomplicated; F12.90 Cannabis use, unspecified, uncomplicated; F10.90 Alcohol use, unspecified, uncomplicated
CPT/HCPCS: 99283

== ENCOUNTER 2024-06-19 00:19 | Emergency (ER) | payer MEDICAID, MEDICARE ==
[~2024-06-19] VITALS: Ht 193 cm; Wt 92.4 kg
[~2024-06-19 00:19] MED LIST changes: +CEPH-585 PO
[2024-06-19] MEDS: naproxen 500mg tablet PO ONE (05:58)
[2024-06-19] MEDS: TETanus/Pertussis (Acell)/Diphther VAC/PF (Tdap-Adult) 0.5ml syringe IMVAC ONE (06:00)
[2024-06-19 06:16] VITALS: BP 143/84; PULSE 99; RESP 16; TEMP 98; O2SAT 97
== END 2024-06-19 06:02 | disposition home or self-care (01) ==
LOC: ER 00:20
DX: S80.212A Abrasion, left knee, initial encounter (principal); S80.211A Abrasion, right knee, initial encounter; I25.2 Old myocardial infarction; F17.200 Nicotine dependence, unspecified, uncomplicated; F10.90 Alcohol use, unspecified, uncomplicated; F12.90 Cannabis use, unspecified, uncomplicated; F15.90 Other stimulant use, unspecified, uncomplicated; Z79.2 Long term (current) use of antibiotics; Z79.899 Other long term (current) drug therapy; W18.39XA Other fall on same level, initial encounter; Y93.89 Activity, other specified; Y92.89 Other specified places as the place of occurrence of the external cause; Y99.8 Other external cause status
CPT/HCPCS: 90715; 99285; G0008; 90471